=== PATIENT | female | born 2000 | race Hispanic/Latino ===

== ENCOUNTER → 2023-01-22 | Outpatient (CLI) | payer MEDICAID ==
[~2023-01-22] MED LIST: IBUP-2077 PO
== END | disposition home or self-care (01) ==
LOC: RAH 12:16
PROVIDERS: ATTEND Obstetrics & Gynecology
DX: Z30.46 Encounter for surveillance of implantable subdermal contraceptive (principal); M19.042 Primary osteoarthritis, left hand
CPT/HCPCS: 73060